=== PATIENT | female | born 1955 | race Hispanic/Latino ===

== ENCOUNTER 2021-09-18 11:02 | Emergency (ER) | payer OTHER, SELFPAY ==
[~2021-09-18] VITALS: Ht 160 cm; Wt 67.1 kg
[2021-09-18 11:07] VITALS: BP 186/78
[2021-09-18] MEDS ORDERED: BACITRACIN 1 EACH PACKET TP ONE (11:20)
[2021-09-18] MEDS ORDERED: ACET-66 PO (11:35)
== END 2021-09-18 11:50 | disposition home or self-care (01) ==
LOC: EDH 11:02
DX: S82.001A Unspecified fracture of right patella, initial encounter for closed fracture (principal); Z88.0 Allergy status to penicillin; Z88.1 Allergy status to other antibiotic agents; Z88.6 Allergy status to analgesic agent; X58.XXXA Exposure to other specified factors, initial encounter; Y93.89 Activity, other specified; Y92.89 Other specified places as the place of occurrence of the external cause; Y99.8 Other external cause status
CPT/HCPCS: 29505

== ENCOUNTER 2023-02-01 16:14 | Emergency (ER) | payer MEDICARE ==
[~2023-02-01] VITALS: Ht 162.6 cm; Wt 68.0 kg
[~2023-02-01 16:14] MED LIST: ACET-66 PO
[2023-02-01 16:15] VITALS: BP 162/93; PULSE 83; RESP 16
[2023-02-01] MEDS ORDERED: ACET-2893 PO (17:36)
[2023-02-01] MEDS ORDERED: CIPR-278 PO (17:36)
[2023-02-01] MEDS ORDERED: ACETAMINOPHEN 500 MG TABLET PO ONE (18:00)
== END 2023-02-01 17:57 | disposition home or self-care (01) ==
LOC: EDH 16:14
DX: K08.89 Other specified disorders of teeth and supporting structures (principal); M79.7 Fibromyalgia; E03.9 Hypothyroidism, unspecified; Z98.890 Other specified postprocedural states; Z88.0 Allergy status to penicillin; Z88.1 Allergy status to other antibiotic agents; Z88.6 Allergy status to analgesic agent; Z88.8 Allergy status to other drugs, medicaments and biological substances

== ENCOUNTER → 2023-06-25 | Outpatient (CLI) | payer OTHER ==
[~2023-06-25] MED LIST changes: +ACET-2893 PO; +CIPR-278 PO
== END | disposition home or self-care (01) ==
LOC: OIH 09:55
PROVIDERS: ATTEND Family Medicine
DX: Z13.6 Encounter for screening for cardiovascular disorders (principal)
CPT/HCPCS: 75571